=== PATIENT | female | born 1960 | race Two or more races ===

== ENCOUNTER 2019-03-03 22:18 | Emergency (ER) | payer MEDICAID ==
[~2019-03-03] VITALS: Ht 152.4 cm; Wt 46.3 kg
[2019-03-03 22:22] VITALS: Ht 152.4 cm; Wt 46.3 kg
[2019-03-03 23:40] LABS: BASOPHIL % 0.3 % (0-2); PLATELET COUNT 210 x10^3mcL (130-400)
[2019-03-03 23:48] LABS: CALCIUM 8.2 mg/dL (8.5-10.1); CARBON DIOXIDE 24.9 mmol/L (21-32); POTASSIUM SERUM 3.3 mmol/L (3.5-5.1)
[2019-03-03 23:53] LABS: ALBUMIN 3.5 g/dL (3.4-5.0); BILIRUBIN TOTAL 0.3 mg/dL (0.20-1.00); TOTAL PROTEIN, SERUM 7.9 g/dL (6.4-8.2)
[2019-03-04 01:34] VITALS: BP 116/66
[2019-03-04 02:04] LABS: UA SPECIFIC GRAVITY <=1.005 (1.005-1.035); microscopic required? YES; urine erythrocyte TRACE (NEGATIVE)
== END 2019-03-04 01:34 | disposition home or self-care (01) ==
LOC: ED 22:18
PROVIDERS: Emergency Medicine
DX: J98.01 Acute bronchospasm (principal); R06.02 Shortness of breath; M06.9 Rheumatoid arthritis, unspecified; Z88.0 Allergy status to penicillin
CPT/HCPCS: 87804; J2930; J7030